=== PATIENT | female | born 1970 ===

== ENCOUNTER 2021-04-03 14:45 | Emergency (ER) | payer OTHER ==
--- NOTE | 2021-04-03 15:02 | NUR ---
pt dog at bedside. 

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
[2021-04-03] MEDS ORDERED: METOCLOPRAMIDE 5 MG/ML, 2ML ONE (15:56)
[2021-04-03] MEDS ORDERED: KETOROLAC 30 MG/1 ML ONE (15:56)
[2021-04-03] MEDS ORDERED: METOCLOPRAMIDE 5 MG/ML, 2ML IM ONE (16:00)
[2021-04-03] MEDS ORDERED: KETOROLAC 30 MG/1 ML IM ONE (16:00)
[2021-04-03] MEDS ORDERED: PLEASE ENTER ALLERGIES MC SCH (16:00)
[2021-04-03 16:04] VITALS: BP 112/77
--- NOTE | 2021-04-03 16:14 | NUR ---
BOBBI RN: PT TO CT VIA [facility]
[2021-04-03] MEDS ORDERED: PLEASE ENTER HEIGHT AND WEIGHT MC SCH (16:30)
--- NOTE | 2021-04-03 17:46 | NUR ---
[facility]ien[facility] given discharge instructions and they have confirmed that they understand the instructions. Patient ambulatory with steady gait. NAD, all questions answered appropriately, denies additional needs at this time. No personal belongings left in room after discharge.
== END 2021-04-03 19:18 | disposition home or self-care (01) ==
LOC: ED 15:00
DX: S70.01XA Contusion of right hip, initial encounter (principal); S09.8XXA Other specified injuries of head, initial encounter; R55 Syncope and collapse; W01.0XXA Fall on same level from slipping, tripping and stumbling without subsequent striking against object, initial encounter; Y93.89 Activity, other specified; Y92.89 Other specified places as the place of occurrence of the external cause; Y99.8 Other external cause status
CPT/HCPCS: 70450; 73502; 96372; 99284; J1885; J2765